=== PATIENT | female | born 1970 | race Caucasian/White ===

== ENCOUNTER → 2016-04-21 | Outpatient (CLI) | payer BC ==
[~2016-04-21] MED LIST: AMOX500T3 PO
--- NOTE | 2016-04-21 12:06 | DIAGNOSTIC IMAGING REPORT ---
ULTRASOUND LEFT LOWER EXTREMITY VENOUS CLINICAL HISTORY: Left leg pain. COMPARISON STUDY: No priors. TECHNIQUE: Real-time, grayscale, and color Doppler sonography of the deep veins of the left lower extremity was performed from the inguinal crease to the calf. Compression and augmentation were utilized. FINDINGS: There is no sonographic evidence of deep venous thrombosis identified in the left lower extremity. The common femoral, superficial femoral, and popliteal veins are patent and normally compressible. The greater saphenous vein and the profunda femoris vein at the junction with the common femoral vein are clear. The visualized calf veins are patent. IMPRESSION: There is no sonographic evidence of deep venous thrombosis identified in the left lower extremity. Electronically signed by: Tony Oliver M.D. 04/21/2016 12:04 PM Dictated Date/Time: 04/21/2016 12:02 PM
== END | disposition home or self-care (01) ==
LOC: C.ULTR 11:29
PROVIDERS: ATTEND Nurse Practitioner Family
DX: M79.606 Pain in leg, unspecified (principal)

== ENCOUNTER → 2016-04-21 | Outpatient (CLI) | payer BC ==
--- NOTE | 2016-04-21 12:39 | MAMMOGRAPHY REPORT ---
UNILATERAL RIGHT DIGITAL DIAGNOSTIC MAMMOGRAM TOMOSYNTHESIS: 04/21/2016 CLINICAL HISTORY: 45-year-old woman presents for follow-up in the right breast for 2 small groupings of probably benign microcalcifications in the posterior breast. TECHNIQUE: Right CC and MLO 2-D digital and tomosynthesis images, spot magnification right CC and M L views were obtained. COMPARISON: Comparison is made to exams dated: 10/10/2015 mammogram, 10/07/2015 mammogram, 11/10/2013 m ammogram, and 06/15/2012 mammogram - [facility]. BREAST COMPOSITION: The tissue of the right breast is heterogeneously dense, which may obscure smal l masses. FINDINGS: The right breast parenchymal pattern is similar to prior mammograms. 2 small groupings of microcalcifications are again seen in the inferior posterior right breast, only clearly identified on one of the repeat spot magnification ML views. However, this view appears very similar comparing to the 10/10/2015 spot magnification ML view suggesting the calcifications are benign. However, lo nger stability is needed and another follow-up is recommended in 6 months. Annual bilateral mammogr aphy will be due at that time. No new suspicious mass, architectural distortion or other cluster of calcifications is identified. IMPRESSION: ACR-BI-RADS CATEGORY 3: PROBABLY BENIGN The 2 small groupings of benign-appearing microcalcifications in the inferior posterior right breast are unchanged comparing to 10/10/2015, therefore likely benign. However, another six-month follow- up exam including repeat spot magnification views is recommended. Annual bilateral mammography will be due at that time. These results and recommendations were discussed with the patient at the time of the exam. Approximately 10% of breast cancers are not detected with mammography. A negative mammographic repor t should not delay biopsy if a clinically suggestive mass is present. Kristan Spaulding M.D. ay/:04/21/2016 09:52:05 Tool Machine Setup Operator: Barby MAURER(Ciara)(M), [facility] letter sent: Follow Up Recommended 3 BI-RADS Code: ACR-BI-RADS Category 3: Probably Benign
== END | disposition home or self-care (01) ==
LOC: C.MAMM 09:13
PROVIDERS: ATTEND Obstetrics & Gynecology
DX: Z12.31 Encounter for screening mammogram for malignant neoplasm of breast (principal); R92.0 Mammographic microcalcification found on diagnostic imaging of breast

== ENCOUNTER → 2016-10-20 | Outpatient (CLI) | payer BC ==
--- NOTE | 2016-10-20 13:54 | MAMMOGRAPHY REPORT ---
BILATERAL DIGITAL DIAGNOSTIC MAMMOGRAM TOMOSYNTHESIS WITH CAD AND TARGETED LEFT ULTRASOUND: 10/20/2016 CLINICAL HISTORY: Second close follow-up of 2 groupings of microcalcifications in the right breast. Also time of annual bilateral screening exam. TECHNIQUE: Bilateral CC and MLO 2-D digital and tomosynthesis images were obtained. Spot magnificati on right CC and ML views were also obtained. Current study was also evaluated with a Computer Aided Detection (CAD) system. COMPARISON: Comparison is made to exams dated: 04/21/2016 mammogram, 10/10/2015 mammogram, 10/07/2015 m ammogram, 11/10/2013 mammogram, and 06/15/2012 mammogram - [facility]. BREAST COMPOSITION: The tissue of both breasts is extremely dense, which lowers the sensitivity of m ammography. FINDINGS: There is a cluster of punctate microcalcifications in the 6:00 posterior right breast measu ring 2.8 mm. A smaller loose grouping of 2-3 by calcifications is also seen in the 3:00 middle one t hird of the right breast. These microcalcifications are stable in size and configuration when compar ing to the spot magnification views dating back to 10/10/2015, and most AP represent benign fibrocyst ic change. Another 12 month follow-up diagnostic mammogram including spot magnification views is rec ommended to ensure longer stability. No new suspicious mass, architectural distortion or cluster of microcalcifications is seen throughout the right breast. In the left lateral breast, best seen on the tomosynthesis images (slice 41), is a lobulated 10 x 10 mm mass. No associated architectural distortion or microcalcification. No other obvious mass is adrian ntified in the left breast. No focal area of architectural distortion or microcalcification. Furthe r evaluation with ultrasound was performed. Targeted ultrasound was performed throughout the lateral left breast. In the 3:00 axis, 2 cm from th e nipple, there is a lobulated predominantly anechoic cyst with a few thin internal nonvascular septa tions measuring 10.0 x 4.0 x 9.4 mm. This likely correlates with the circumscribed mammographic mass and is benign. Note is made of other cysts and cyst clusters in particular within the 1:00 left [address], 2 cm from the nipple, measuring 12.7 x 7.8 x 9.3 mm. Another cyst cluster in the 1:[address], 3 cm from the nipple, measures 9.9 x 7.4 x 9.7 mm. Other smaller scattered anechoic benign cysts are also seen throughout the lateral left breast. No suspicious solid mass. IMPRESSION: ACR-BI-RADS CATEGORY 3: PROBABLY BENIGN, TARGETED ULTRASOUND ACR-BI-RADS CATEGORY 3: PRO BABLY BENIGN 1. A lobulated 10 mm mass in the lateral left breast correlates with a benign cyst on ultrasound. S everal other cysts and clusters of cysts are seen throughout the lateral left breast on ultrasound co mpatible with benign fibrocystic change. There is no mammographic or targeted sonographic evidence o f malignancy in the left breast. 2. There are 2 stable clusters/groupings of benign-appearing microcalcifications in the right breast approximate 6:00 and 3:00 axes. These calcifications are stable for one year but longer stability i s needed. Repeat diagnostic mammograms and spot magnification views of the right breast are recommen ded in 12 months. Annual left mammography will also be due at that time. These results and recommendations were discussed with the patient at the time of the exam. Approximately 10% of breast cancers are not detected with mammography. A negative mammographic report should not delay biopsy if a clinically suggestive mass is present. Kristan Spaulding M.D. ay/:10/20/2016 12:20:47 Office Administrative Assistant: Shelby VALLADARES)(Louise), [facility] letter sent: Follow Up Recommended 3 BI-RADS Code: ACR-BI-RADS Category 3: Probably Benign Ultrasound BI-RADS: ACR-BI-RADS Category 3: Pr obably Benign
== END | disposition home or self-care (01) ==
LOC: C.MAMM 10:05
PROVIDERS: ATTEND Obstetrics & Gynecology
DX: N63 Unspecified lump in breast (principal); R92.0 Mammographic microcalcification found on diagnostic imaging of breast

== ENCOUNTER → 2017-05-06 | Outpatient (CLI) | payer OTHER | END | disposition home or self-care (01) | LOC: C.PAPS 15:39 | PROVIDERS: ATTEND Obstetrics & Gynecology | DX: R10.31 Right lower quadrant pain (principal) ==

== ENCOUNTER → 2017-11-01 | Outpatient (CLI) | payer OTHER ==
--- NOTE | 2017-11-02 07:29 | MAMMOGRAPHY REPORT ---
BILATERAL DIGITAL DIAGNOSTIC MAMMOGRAM TOMOSYNTHESIS WITH CAD: 11/01/2017 CLINICAL HISTORY: 47-year-old woman presents for continued close follow-up in the right breast for pr obably benign small clusters of microcalcifications, and also due for annual bilateral mammography. TECHNIQUE: Bilateral CC and MLO 2D and tomosynthesis images, spot magnification right CC and ML views were obtained. Current study was also evaluated with a Computer Aided Detection (CAD) system. COMPARISON: Comparison is made to exams dated: 10/20/2016 mammogram, 04/21/2016 mammogram, 10/10/2015 m ammogram, 10/07/2015 mammogram, 11/10/2013 mammogram, and 06/15/2012 mammogram - [facility]. BREAST COMPOSITION: The tissue of both breasts is heterogeneously dense, which may obscure small mass es. FINDINGS: The glandular pattern of the breasts is similar to prior mammograms. No new suspicious mas ses, asymmetries or areas of architectural distortion are identified. On the current full-field righ t CC and MLO views, more posterior tissue is visualized comparing to prior mammograms. A small, 2 mm cluster of punctate microcalcifications is seen in the approximate 6:00 posterior right breast, more conspicuous comparing to prior full-field mammograms, but corresponding to the calcifications which are being followed. No other new suspicious calcifications are identified bilaterally. The spot magnification views of the right breast demonstrate a 2 mm cluster of punctate microcalcific ations in the 6:00 to 7:00 far posterior right breast. A second smaller loose grouping of calcificat ions is best seen on the spot magnification ML view superior and slightly anterior to the first, that is unchanged. However, the 2 mm cluster in the 6:00 to 7:00 posterior breast is increasingly conspi cuous comparing it to more remote mammograms although appears unchanged comparing to the spot magnifi cation views obtained on 10/20/2016 although these calcifications most likely represent benign fibrocy stic change given relative stability, given the increasingly conspicuous nature, definitive character ization with stereotactic biopsy is recommended. IMPRESSION: ACR BI-RADS CATEGORY 4: SUSPICIOUS 1. Right breast stereotactic guided biopsy is recommended for a 2 mm cluster of punctate microcalcif ications in the 6:00 to 7:00 posterior breast that is increasingly conspicuous comparing to prior ful l-field views. 2. A second smaller grouping of punctate calcification superior and anterior to the first is stable and probably benign. Pending benign pathology results from the right breast biopsy, would recommend one more 12 month follow-up diagnostic mammogram to ensure longer stability. 3. No other suspicious mammographic abnormality seen bilaterally. Stable mammographic appearance of the left breast, without evidence of malignancy and would recommend left breast follow-up in 1 year. These results and recommendations were discussed with the patient at the time of the exam. She tenta tively scheduled the right breast stereotactic biopsy prior to leaving our department. Some breast cancers are not detected with mammography. A negative mammographic report should not colton y biopsy if a clinically suggestive mass is present. Kristan Spaulding M.D. ay/:11/01/2017 15:00:56 Brake Lining Maker: RT Dread(Ciara)(M), [facility] letter sent: Abnormal 4/5 BI-RADS Code: ACR BI-RADS Category 4: Suspicious
== END | disposition home or self-care (01) ==
LOC: C.MAMM 10:00
PROVIDERS: ATTEND Obstetrics & Gynecology
DX: R92.0 Mammographic microcalcification found on diagnostic imaging of breast (principal); R92.1 Mammographic calcification found on diagnostic imaging of breast

== ENCOUNTER → 2017-11-09 | Outpatient (CLI) | payer OTHER ==
--- NOTE | 2017-11-09 13:40 | Discharge Instructions ---
Discharge Instructions Procedure Procedure Date: Nov 09, 2017. Reason for visit: Right Calcs. Discharge Discharge Date: Nov 09, 2017. Discharge Diagnosis: post right breast stereotactic guided biopsy Instructions Activity Recommendations: Additional Limitations (see below) Return to School/Work: no limitations Recommended Home Diet: No Limitations Provider Instructions: ACTIVITY RECOMMENDATIONS: * No lifting, pushing, pulling or exercising the affected side for three days. RETURN TO SCHOOL/WORK: * You may return to work/school after the procedure, but do not perform any strenuous activities for 24 to 48 hours. MEDICATIONS: * Tylenol (two 325 mg) every four to six hours if needed for mild pain (if not allergic to Tylenol). DIET: * Resume previous diet. SPECIAL CARE INSTRUCTIONS: * Keep biopsy site dry for 24 hours. May shower after 24 hours, but do not soak (bathe) incision. May remove Tegaderm (plastic patch) 24 hours after procedure * Leave the steri-strips on for one week. Allow the steri-strips to fall off by themselves. If not off after one week, you may remove them. You may place a Bandaid crosswise over the strips, if desired. * Apply ice 10 minutes on and 10 minutes off as needed. * Wear a bra at bedtime to sleep more comfortably for 2-3 days. * Your referring physician should have the results after approximately 5 to 7 business days. * Call for unusual bleeding, fever, drainage, etc or if you have any questions call [phone] during normal business hours or after hours call Dr Spaulding, . FOLLOW UP VISIT: Follow-up with Referring Physician as scheduled. Allergies Coded Allergies: No Known Allergies (Unverified , 07/25/12) Cesar Lao Recommendations: Call your doctor if: * Temperature above 101 degrees * Pain not relieved by pain medicine ordered * There is increased drainage or redness from any incision * You have any unanswered questions or concerns. Your Doctors Instructions noted above were prepared by provider Kristan Spaulding. Patient Signature Section: Patient Instructions Signature Page Anna Redmond Patient (or Guardian) Signature/Date: I have read and understand the instructions given to me by my caregivers. Caregiver/RN/Doctor Signature/Date: The above-named patient and/or guardian has received patient instructions on this date. + Original Patient Signature Page (only) stays with chart. Please make copy for patient.
--- NOTE | 2017-11-09 15:20 | MAMMOGRAPHY REPORT ---
UNILATERAL RIGHT DIGITAL DIAGNOSTIC MAMMOGRAM TOMOSYNTHESIS: 11/09/2017 CLINICAL HISTORY: Status post stereotactic guided biopsy of a small cluster of microcalcifications in the 6:00 posterior right breast. Please refer the report from right breast stereotactic guided biopsy performed at the same time for f ull detail. IMPRESSION: POST PROCEDURE IMAGING FOR MARKER PLACEMENT Please refer the report from right breast stereotactic guided biopsy performed at the same time for f ull detail. Some breast cancers are not detected with mammography. A negative mammographic report should not colton y biopsy if a clinically suggestive mass is present. Kristan Spaulding M.D. ay/:11/09/2017 13:41:38 Attending Technologist: Blanca Green RT(R)(M), [facility] It Technician: RT Elizabeth(R)(M), [facility] BI-RADS Code: Post Procedure Imaging For Marker Placement
--- NOTE | 2017-11-09 15:20 | MAMMOGRAPHY REPORT ---
STEREOTACTIC GUIDED BIOPSY RIGHT BREAST: 11/09/2017 CLINICAL HISTORY: 47-year-old woman presents for stereotactic guided biopsy of a small cluster of andrzej rocalcifications in the 6:00 to 7:00 posterior right breast. COMPARISON: Comparison is made to exams dated: 11/01/2017 mammogram, 10/20/2016 mammogram, 04/21/2016 m ammogram, 10/10/2015 mammogram, 10/07/2015 mammogram, and 11/10/2013 mammogram - [facility]. PATIENT CONSENT: After explaining the risks, benefits and alternatives of the procedure to the patien t, informed consent was obtained both verbally and in writing. Specific risks include: Bleeding, inf ection, puncture of adjacent structure, pain, nontarget biopsy, sampling error, metal allergy and med ication reaction. PROCEDURE DESCRIPTION: A time-out was performed and the right breast was confirmed as the site of bio psy. The patient was placed prone on the stereotactic biopsy table and the breast was placed in later almedial compression. A tomosynthesis core winder view was obtained which demonstrates the calcifications just above the targeting window and therefore multiple attempts at repositioning were performed to tr y to include the calcifications within the targeting window. Ultimately, the calcifications were vis ualized within the targeting window and the small cluster of calcifications were targeted utilizing t he coordinates obtained by the computer. The skin was prepped with Betadine. 1% Lidocaine with and w ithout epinipherine was administered as local anesthesia. A small skin incision was made. Through th e incision, the needle was inserted to the depth determined by the computer. 4 samples were obtained using a [employer] 9-gauge vacuum-assisted biopsy device. The specimen radiograph demonstrated sever al disability representative microcalcifications, therefore, a metallic marker was placed at the biopsy site. Th ere was no immediate complication. Hemostasis was achieved after several minutes of manual compressio n. The samples were sent to pathology in an appropriately labeled container. Postprocedure CC and ML tomosynthesis views of the right breast were obtained. There is a new dumbb ell-shaped metallic biopsy marker clip and no significant hematoma in the 6:00 to 7:00 posterior righ t breast, at the site of biopsied calcifications. Pending benign pathology results, would recommend one more 12 month follow-up right diagnostic mammogram including spot magnification views to ensure s tability of the other smaller non-biopsied cluster of calcifications. The patient will also be due f or bilateral screening mammography at that time. IMPRESSION: STEREOTACTIC GUIDED BIOPSY 1. Status post right breast stereotactic guided biopsy of a small cluster of microcalcifications in t he 6:00 to 7:00 posterior right breast, with biopsy marker clip placed at the site. 2. Pending benign pathology results, would recommend one more 12 month follow-up right diagnostic ma mmogram including spot magnification views to ensure stability of the other smaller non-biopsied clus ter of calcifications. The patient will also be due for bilateral screening mammography at that time . The patient will receive notification of the results from her referring physician. Kristan Spaulding M.D. ay/:11/09/2017 14:30:40 Attending Technologist: Blanca Green RT(R)(M), [facility] Bench Mechanic: RT Elizabeth(R)(M), [facility]
== END | disposition home or self-care (01) ==
LOC: C.MAMM 12:39
PROVIDERS: ATTEND Obstetrics & Gynecology
DX: R92.0 Mammographic microcalcification found on diagnostic imaging of breast (principal); N60.81 Other benign mammary dysplasias of right breast

== ENCOUNTER 2020-09-19 18:09 | Observation (INO) ==
[2020-09-19] MEDS ORDERED: NITROGLYCERIN SL 0.4 MG/TAB TAB SL PRN (18:12)
--- NOTE | 2020-09-19 18:24 | Emergency Department Note ---
Impression & Plan Substernal chest pain ED Provider Note INFORMANT: Patient, EMS ED PROVIDER(S): Dru Hunt MD CHIEF COMPLAINT: Chest pain PLAN: Disposition: Admitted Condition: Good Outpatient prescription management: none Referral: None patient presented to emergency department via EMS from the outpatient clinic. Her ECG was concerning for left bundle branch block. No recent EKGs were available for comparison. The patient did have some relief with nitroglycerin. She was given a second nitroglycerin sublingual and felt even better. The pain was resolved. Nitropaste was applied. She was mildly tachycardic and hypertensive. She was given IV metoprolol. The patient had an unremarkable CBC and chemistry panel. Troponin was negative. D-dimer was negative. I did consult with Dr. Escalera of interventional cardiology and he recommended the patient be heparinized admitted to medicine with cardiology consultation unless there was an significant issue with the troponin. He noted he wanted to be notified if that was the case. The troponin in fact was negative and therefore internal medicine was consulted. Heparin drip was initiated in the ER. Case was discussed with Dr. Kerr of the [facility]. The patient was evaluated in the ER and admitted for further management. Incidentally the patient did have a low TSH and a minimally elevated free T4. The patient had been taking iodine supplementation. MEDICAL DECISION MAKING: Provider summary Triage Nursing notes reviewed and agree them. Vital Signs: reviewed and remarkable for no significant abnormalities Differential diagnosis: Cardiac ischemia, aortic dissection, pulmonary embolism, pneumothorax, pneumonia, pericarditis, myocarditis, esophageal rupture, GERD, cholecystitis, pancreatitis, musculoskeletal, as well as other pathologies. Diagnostics interpreted by me: ECG: Rate:99 Rhythm:Normal sinus [place]:Normal QRS:LBBB ST segements:No elevation or depression Other:No PACs or PVCs Cardiac Monitoring: Cardiac monitoring ordered by me: The patient was placed on continuous cardiac monitoring and observed. It revealed a normal sinus rhythm at 98beats per minute without ectopy or evidence of dysrhythmia. Chest x-ray. Findings: A chest x-ray was performed and revealed no pneumothorax, effusion, infiltrate, pulmonary edema, free air under the diaphragm, or wide mediastinum. HPI: The patient is a 50 year old female who presents to the Emergency Room with complaints of substernal chest pain. This started 2 days ago and is intermittent. The patient also notes the following associated symptoms, none. The patient has been given aspirin and nitro for relieving factors. Current pain is rated as 3/10. Pt denies LOC, headache, fevers, chills, diaphoresis, visual changes, neck pain, breathing difficulties, nausea, vomiting, abdominal pain, back pain, melena, hematochezia, urinary symptoms, numbness, weakness, lymphadenopathy, rash, or other complaints. ROS: See above HPI for pertinent positives & negatives. A total of 10 systems reviewed and were otherwise negative. PAST MEDICAL HISTORY:See Below , sleep apnea PAST SURGICAL HISTORY:See Below, TKR FAMILY HISTORY:See Below SOCIAL HISTORY:See Below, , no tobacco HOME MEDICATIONS:See Below ALLERGIES:See Below VITALS:See Below PHYSICAL EXAMINATION: GENERAL: Awake, alert, well-appearing, in no distress HENT: Normocephalic, atraumatic. Oropharynx unremarkable. EYES: Normal conjunctiva. Sclera non-icteric. NECK: Inspection normal. Non-tender. Supple. No nuchal rigidity. FROM. No masses. RESPIRATORY: Clear to auscultation. No wheezes. No rales. Normal respiratory effort. CARDIAC: Normal rate. Normal rhythm. No murmurs. No rubs. Extremities warm and well perfused. Pulses equal. No JVD. GI: Soft, non-distended. No tenderness to palpation. No rebound or guarding. No masses. RECTAL: Deferred. MUSCULOSKELETAL: Atraumatic. Chest examination reveals no tenderness. The back is symmetrical on inspection without obvious abnormality. There is no CVA tenderness to palpation. No joint edema. LOWER EXTREMITIES: Calves are equal size bilaterally and non-tender. No edema. N o discoloration. NEURO: Normal sensorium. No sensory or motor deficits noted. SKIN: No rash or jaundice noted. 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 Nasal septal deviation Rheumatoid arthritis Surgical History H/O section S/P surgery on nasal septum deviation repair S/P wisdom tooth extraction Total knee replacement status bilateral Family History Father Mother Hypertension Denies family history of Ovarian cancer Breast cancer Colorectal cancer Social History Smoking Status: Never smoker Hx Alcohol Use: Yes (social) marital status: Feels Safe at Home: Yes Allergies Allergies Allergy/AdvReac Type Severity Reaction Status Date / Time No Known Drug Allergies Allergy Unknown Verified 09/19/20 19:53 Home Meds Home Medications Medication Instructions Recorded Confirmed boric acid See Rx Instructions MS CAIN 12/01/18 09/19/20 bupropion HCl 150 mg 24 hr tablet, 150 mg PO DAILY tab 12/01/18 09/19/20 extended release dexmethylphenidate 5 mg PO QAM 09/19/20 09/19/20 Results & Data (ED) Vital Signs Vital Signs - 24 hr 09/19/20 18:16 09/19/20 18:18 09/19/20 18:20 Temperature Temperature Source Pulse Rate 94 H 103 H 90 Pulse Rate from SpO2 Sensor 95 H 99 H 89 Pulse Rhythm Pulse Strength Respiratory Rate 17 18 33 H Respiratory Effort / Characteristics Respiratory Depth Blood Pressure 193/112 H Blood Pressure Mean 139 Blood Pressure Position Pulse Oximetry 99 99 98 Oxygen Delivery Method Sepsis Recent Fever Within 48 Hours Sepsis New/Unexplained Change in Mental Status Sepsis Action Taken by Nursing 09/19/20 18:26 09/19/20 18:30 09/19/20 18:31 Temperature 36.6 C Temperature Source Oral Pulse Rate 110 H 99 H 84 Pulse Rate from SpO2 Sensor 99 H 85 Pulse Rhythm Regular Pulse Strength Normal Respiratory Rate 23 23 23 Respiratory Effort / Characteristics Non-Labored Respiratory Depth Normal Blood Pressure 193/112 H 207/113 H Blood Pressure Mean 139 144 Blood Pressure Position Sitting Pulse Oximetry 99 100 99 Oxygen Delivery Method Room Air Sepsis Recent Fever Within 48 Hours No Sepsis New/Unexplained Change in Mental Status No Sepsis Action Taken by Nursing No Action Required 09/19/20 18:41 09/19/20 18:42 09/19/20 18:45 Temperature Temperature Source Pulse Rate 91 H 88 95 H Pulse Rate from SpO2 Sensor 95 H 86 94 H Pulse Rhythm Pulse Strength Respiratory Rate 26 H 25 H 12 Respiratory Effort / Characteristics Respiratory Depth Blood Pressure 201/107 H 191/107 H Blood Pressure Mean 138 135 Blood Pressure Position Pulse Oximetry 99 99 98 Oxygen Delivery Method Sepsis Recent Fever Within 48 Hours Sepsis New/Unexplained Change in Mental Status Sepsis Action Taken by Nursing 09/19/20 18:50 09/19/20 18:51 09/19/20 18:55 Temperature Temperature Source Pulse Rate 91 H 96 H 92 H Pulse Rate from SpO2 Sensor 93 H 97 H Pulse Rhythm Pulse Strength Respiratory Rate 25 H 21 19 Respiratory Effort / Characteristics Respiratory Depth Blood Pressure 160/96 H 157/98 H Blood Pressure Mean 117 117 Blood Pressure Position Pulse Oximetry 97 97 97 Oxygen Delivery Method Sepsis Recent Fever Within 48 Hours Sepsis New/Unexplained Change in Mental Status Sepsis Action Taken by Nursing 09/19/20 19:00 09/19/20 19:05 09/19/20 19:10 Temperature Temperature Source Pulse Rate 82 77 77 Pulse Rate from SpO2 Sensor Pulse Rhythm Pulse Strength Respiratory Rate 20 24 13 Respiratory Effort / Characteristics Respiratory Depth Blood Pressure 173/93 H 165/99 H 160/97 H Blood Pressure Mean 119 121 118 Blood Pressure Position Pulse Oximetry 98 99 99 Oxygen Delivery Method Sepsis Recent Fever Within 48 Hours Sepsis New/Unexplained Change in Mental Status Sepsis Action Taken by Nursing 09/19/20 19:15 09/19/20 19:20 09/19/20 19:25 Temperature Temperature Source Pulse Rate 72 74 80 Pulse Rate from SpO2 Sensor Pulse Rhythm Pulse Strength Respiratory Rate 19 25 H 19 Respiratory Effort / Characteristics Respiratory Depth Blood Pressure 162/97 H 160/100 H 173/96 H Blood Pressure Mean 118 120 121 Blood Pressure Position Pulse Oximetry 98 99 99 Oxygen Delivery Method Sepsis Recent Fever Within 48 Hours Sepsis New/Unexplained Change in Mental Status Sepsis Action Taken by Nursing 09/19/20 19:28 09/19/20 19:30 09/19/20 19:35 Temperature Temperature Source Pulse Rate 84 76 70 Pulse Rate from SpO2 Sensor Pulse Rhythm Pulse Strength Respiratory Rate 14 17 Respiratory Effort / Characteristics Respiratory Depth Blood Pressure 173/96 H 169/102 H 157/90 H Blood Pressure Mean 124 112 Blood Pressure Position Pulse Oximetry 99 99 Oxygen Delivery Method Sepsis Recent Fever Within 48 Hours Sepsis New/Unexplained Change in Mental Status Sepsis Action Taken by Nursing 09/19/20 19:40 09/19/20 19:45 09/19/20 19:50 Temperature Temperature Source Pulse Rate 69 69 72 Pulse Rate from SpO2 Sensor Pulse Rhythm Pulse Strength Respiratory Rate 18 22 20 Respiratory Effort / Characteristics Respiratory Depth Blood Pressure 176/101 H 164/95 H 164/94 H Blood Pressure Mean 126 118 117 Blood Pressure Position Pulse Oximetry 99 98 99 Oxygen Delivery Method Sepsis Recent Fever Within 48 Hours Sepsis New/Unexplained Change in Mental Status Sepsis Action Taken by Nursing 09/19/20 19:55 09/19/20 20:00 09/19/20 20:16 Temperature Temperature Source Pulse Rate 66 67 72 Pulse Rate from SpO2 Sensor Pulse Rhythm Pulse Strength Respiratory Rate 19 17 17 Respiratory Effort / Characteristics Respiratory Depth Blood Pressure 158/94 H 166/91 H 177/97 H Blood Pressure Mean 115 116 123 Blood Pressure Position Pulse Oximetry 99 98 98 Oxygen Delivery Method Sepsis Recent Fever Within 48 Hours Sepsis New/Unexplained Change in Mental Status Sepsis Action Taken by Nursing 09/19/20 20:20 09/19/20 20:30 09/19/20 21:00 Temperature Temperature Source Pulse Rate 72 70 73 Pulse Rate from SpO2 Sensor Pulse Rhythm Pulse Strength Respiratory Rate 19 22 26 H Respiratory Effort / Characteristics Respiratory Depth Blood Pressure 154/111 H 170/108 H 153/108 H Blood Pressure Mean 125 128 123 Blood Pressure Position Pulse Oximetry 98 97 Oxygen Delivery Method Sepsis Recent Fever Within 48 Hours Sepsis New/Unexplained Change in Mental Status Sepsis Action Taken by Nursing 09/19/20 21:30 09/19/20 22:00 09/19/20 22:13 Temperature Temperature Source Pulse Rate 79 88 79 Pulse Rate from SpO2 Sensor Pulse Rhythm Pulse Strength Respiratory Rate 14 21 Respiratory Effort / Characteristics Respiratory Depth Blood Pressure 169/106 H 184/122 H 157/90 H Blood Pressure Mean 127 142 112 Blood Pressure Position Pulse Oximetry 96 96 98 Oxygen Delivery Method Room Air Sepsis Recent Fever Within 48 Hours Sepsis New/Unexplained Change in Mental Status Sepsis Action Taken by Nursing Laboratory Data Result diagrams: 09/19/20 18:27 09/19/20 18:27 Lab Results 09/19/20 09/19/20 09/19/20 Range/Units 18:00 18:00 18:27 WBC 6.37 (4.8-10.8) K/uL RBC 4.66 (4.2-5.4) M/uL Hgb 12.6 (12.0-16.0) g/dL Hct 38.2 (37-47) % MCV 82.0 (80-100) fL MCH 27.0 (25-34) pg MCHC 33.0 (32-36) g/dL RDW Std Deviation 38.0 (36.4-46.3) fL RDW Coeff of Wendy 12.7 (11.5-14.5) % Plt Count 286 (130-400) K/uL MPV 9.9 (7.4-10.4) fL Immature Gran % (Auto) 0.2 % Neut % (Auto) 45.6 % Lymph % (Auto) 41.1 % [place] % (Auto) 10.5 % Eos % (Auto) 2.4 % Baso % (Auto) 0.2 % Neut # (Auto) 2.91 (1.4-6.5) K/uL Lymph # (Auto) 2.62 (1.2-3.4) K/uL [place] # (Auto) 0.67 H (0.11-0.59) K/uL Eos # (Auto) 0.15 (0-0.5) K/uL Baso # (Auto) 0.01 (0-0.2) K/uL Immature Gran # (Auto) 0.01 (0.00-0.02) K/uL PT (9.0-12.0) Seconds INR (0.9-1.1) APTT (21.0-31.0) Seconds PTT Ratio D-Dimer (0-500) ug/L FEU Sodium (136-145) mmol/L Potassium (3.5-5.1) mmol/L Chloride (98-107) mmol/L Carbon Dioxide (21-32) mmol/L Anion Gap (3-11) BUN (7-18) mg/dl Creatinine (0.6-1.2) mg/dl Est Cr Clr Drug Dosing ml/min Est GFR ( Amer) ml/min Est GFR (Non-Af Amer) ml/min BUN/Creatinine Ratio (10-20) Glucose (70-99) mg/dl Calcium (8.5-10.1) mg/dl Total Bilirubin (0.2-1) mg/dl AST (15-37) U/L ALT (12-78) U/L Alkaline Phosphatase (45-117) U/L Troponin I (0-0.045) ng/ml Total Protein (6.4-8.2) gm/dl Albumin (3.4-5.0) gm/dl Globulin (2.5-4.0) gm/dl Albumin/Globulin Ratio (0.9-2) Lipase (73-393) U/L TSH (0.300-4.500) uIu/ml Free T4 (0.8-1.6) ng/dl COVID-19 Eval Order Covid19 at [facility] SARS-CoV-2 (PCR) NEGATIVE (Negative) 09/19/20 09/19/20 Range/Units 18:27 18:27 WBC (4.8-10.8) K/uL RBC (4.2-5.4) M/uL Hgb (12.0-16.0) g/dL Hct (37-47) % MCV (80-100) fL MCH (25-34) pg MCHC (32-36) g/dL RDW Std Deviation (36.4-46.3) fL RDW Coeff of Wendy (11.5-14.5) % Plt Count (130-400) K/uL MPV (7.4-10.4) fL Immature Gran % (Auto) % Neut % (Auto) % Lymph % (Auto) % [place] % (Auto) % Eos % (Auto) % Baso % (Auto) % Neut # (Auto) (1.4-6.5) K/uL Lymph # (Auto) (1.2-3.4) K/uL [place] # (Auto) (0.11-0.59) K/uL Eos # (Auto) (0-0.5) K/uL Baso # (Auto) (0-0.2) K/uL Immature Gran # (Auto) (0.00-0.02) K/uL PT 9.8 (9.0-12.0) Seconds INR 1.0 (0.9-1.1) APTT 25.8 (21.0-31.0) Seconds PTT Ratio 1.0 D-Dimer 440 (0-500) ug/L FEU Sodium 141 (136-145) mmol/L Potassium 3.7 (3.5-5.1) mmol/L Chloride 108 H (98-107) mmol/L Carbon Dioxide 26 (21-32) mmol/L Anion Gap 7.0 (3-11) BUN 16 (7-18) mg/dl Creatinine 0.86 (0.6-1.2) mg/dl Est Cr Clr Drug Dosing 70.4 ml/min Est GFR ( Amer) 91.3 ml/min Est GFR (Non-Af Amer) 78.8 ml/min BUN/Creatinine Ratio 18.4 (10-20) Glucose 92 (70-99) mg/dl Calcium 9.0 (8.5-10.1) mg/dl Total Bilirubin 0.2 (0.2-1) mg/dl AST 28 (15-37) U/L ALT 33 (12-78) U/L Alkaline Phosphatase 95 (45-117) U/L Troponin I < 0.015 (0-0.045) ng/ml Total Protein 8.4 H (6.4-8.2) gm/dl Albumin 3.9 (3.4-5.0) gm/dl Globulin 4.5 H (2.5-4.0) gm/dl Albumin/Globulin Ratio 0.9 (0.9-2) Lipase 107 (73-393) U/L TSH < 0.005 L (0.300-4.500) uIu/ml Free T4 1.63 H (0.8-1.6) ng/dl COVID-19 Eval Order SARS-CoV-2 (PCR) (Negative) Administered Medications Heparin Sodium/Dextrose (Heparin Sodium/Dextrose) 25,000 units in 500 mls @ 14 mls/hr IV .Q24H [facility]; Protocol Stop: 10/19/20 19:58 Last Admin: 09/19/20 20:11 Dose: 700 units/hr, 14 mls/hr Documented by: [id number] Cosigned by: [id number] Nitroglycerin (Nitroglycerin Sl 0.4 Mg/Tab Tab) 0.4 mg SL UD PRN PRN Reason: Chest Pain Stop: 10/19/20 18:11 Last Admin: 09/19/20 18:46 Dose: 0.4 mg Documented by: [id number] Discontinued Medications Heparin Sodium (Porcine) (Heparin Sod (Porcine) 1000 Unit/Ml) 1 units IV NOW ONE Stop: 09/19/20 20:00 Last Admin: 09/19/20 20:16 Dose: Not Given Documented by: [id number] Heparin Sodium (Porcine) (Heparin Sod (Porcine) 1000 Unit/Ml) 4,000 units IV NOW ONE Stop: 09/19/20 20:12 Last Admin: 09/19/20 20:12 Dose: 4,000 units Documented by: [id number] Cosigned by: [id number] Heparin Sodium/Dextrose (Heparin Iv Adult Wt-Based Low-Dose With Bolus Protocol) 1 ea N/A NOW STA; Protocol Stop: 09/19/20 19:44 Last Admin: 09/19/20 20:16 Dose: 1 ea Documented by: [id number] Metoprolol Tartrate (Metoprolol Tartrate 1 Mg/Ml Vial) 2.5 mg IV NOW STA Stop: 09/19/20 19:18 Last Admin: 09/19/20 19:28 Dose: 2.5 mg Documented by: [id number] Nitroglycerin (Nitroglycerin 2% Ointment 30gm Tube) 0.5 inch EXT NOW STA Stop: 09/19/20 18:29 Last Admin: 09/19/20 18:43 Dose: 0.5 inch Documented by: [id number] Imaging Data Radiologist's Impression: Chest X-Ray 09/19/20 18:12 XR chest 1V portable CLINICAL HISTORY: Atypical chest pain COMPARISON STUDY: No previous studies for comparison. FINDINGS: The cardiac and mediastinal contours are normal. There is no evidence of focal pulmonary consolidation. There is no evidence of failure. No pleural effusions are visualized.[ IMPRESSION: No active disease in the chest. ACT 112: Negative or not required by law. Electronically signed by: Bobby Shetty M.D. 09/19/2020 7:25 PM Discharge Plan Visit Data Chief Complaint: Chest Pain ED Provider: Dru Hunt Discharge Problem: Substernal chest pain Discharge Instructions Interventions: ED Discharge Assessment Last Done: 09/19/20 22:16
[2020-09-19] MEDS ORDERED: NITROGLYCERIN 2% OINTMENT 30GM TUBE EXT STA (18:28)
[2020-09-19 18:41] LABS: Basophils # (auto) 0.01 K/uL (0-0.2); Basophils % (auto) 0.2 %; Eosinophils # (auto) 0.15 K/uL (0-0.5); Eosinophils % (auto) 2.4 %; Hematocrit (blood only) 38.2 % (37-47); Hemoglobin 12.6 g/dL (12.0-16.0); Immature Granulocytes # (auto) 0.01 K/uL (0.00-0.02); Immature Granulocytes % (auto) 0.2 %; Lymphocytes # (auto) 2.62 K/uL (1.2-3.4); Lymphocytes % (auto) 41.1 %; Mean Platelet Volume 9.9 fL (7.4-10.4); Monocytes # (auto) 0.67 K/uL (0.11-0.59); Monocytes % (auto) 10.5 %; Neutrophils # (auto) 2.91 K/uL (1.4-6.5); Neutrophils % (auto) 45.6 %; Platelet Count 286 K/uL (130-400); RDW Coefficient of Variation 12.7 % (11.5-14.5); Red Blood Count 4.66 M/uL (4.2-5.4); White Blood Count 6.37 K/uL (4.8-10.8)
[2020-09-19 18:53] LABS: D Dimer 440 ug/L FEU (0-500); Partial Thromboplastin Time 25.8 Seconds (21.0-31.0); Prothrombin Time 9.8 Seconds (9.0-12.0)
[2020-09-19 18:58] LABS: Alanine Aminotransferase 33 U/L (12-78); Albumin Level 3.9 gm/dl (3.4-5.0); Aspartate Aminotransferase 28 U/L (15-37); BUN Creatinine Ratio 18.4 (10-20); Blood Urea Nitrogen 16 mg/dl (7-18); Carbon Dioxide 26 mmol/L (21-32); Chloride 108 mmol/L (98-107); Creatinine Clr Calc Pharmacy 70.4 ml/min; Est GFR (African American) 91.3 ml/min; Est GFR (Non-African American) 78.8 ml/min; Glucose 92 mg/dl (70-99); Lipase 107 U/L (73-393); Potassium 3.7 mmol/L (3.5-5.1); Sodium 141 mmol/L (136-145)
[2020-09-19 19:09] LABS: Albumin Globulin Ratio 0.9 (0.9-2); Alkaline Phosphatase 95 U/L (45-117); Bilirubin,Total 0.2 mg/dl (0.2-1); Globulin 4.5 gm/dl (2.5-4.0); Thyroid Stimulating Hormone < 0.005 uIu/ml (0.300-4.500); Total Protein 8.4 gm/dl (6.4-8.2); Troponin I < 0.015 ng/ml (0-0.045)
[2020-09-19] MEDS ORDERED: METOPROLOL TARTRATE 1 MG/ML VIAL IV STA (19:17)
[2020-09-19 19:22] LABS: T4 Free Thyroxine 1.63 ng/dl (0.8-1.6)
--- NOTE | 2020-09-19 19:26 | XRay Report ---
XR chest 1V portable CLINICAL HISTORY: Atypical chest pain COMPARISON STUDY: No previous studies for comparison. FINDINGS: The cardiac and mediastinal contours are normal. There is no evidence of focal pulmonary co nsolidation. There is no evidence of failure. No pleural effusions are visualized.[ IMPRESSION: No active disease in the chest. ACT 112: Negative or not required by law. Electronically signed by: Bobby Shetty M.D. 09/19/2020 7:25 PM
[2020-09-19] MEDS ORDERED: Heparin IV Adult Wt-Based Low-Dose WITH Bolus Protocol STA (19:43)
[2020-09-19] MEDS ORDERED: HEPARIN SOD (PORCINE) 1000 UNIT/ML IV ONE ×2 (19:59→20:11)
[2020-09-19] MEDS ORDERED: HEPARIN SODIUM/DEXTROSE 25,000 UNITS/500 ML BAG IV SCH (19:59)
--- NOTE | 2020-09-19 20:18 | History & Physical Report ---
Date of Service September 19, 2020 Assessment & Plan (1) Substernal chest pain: 50 y/o F w/ ADD on occasional stimulant medication and w/o significant risk factors who presents w/ intermittent atypical chest pain x3 days. Stable. - midupper sternal, pleuritic, nonexertional, nonpositional, alleviated by nitro. No associated symptoms. - other differentials considered: myocarditis, PE, costochondritis, GERD - ecg w/ new LBBB, negative for modified and classic Sgarbossa criteria - neg trop x1. trend - heart score 1. AGNIESZKA score 1. - consult cardiology because of new LBBB (2) Elevated blood pressure reading: - no hx of HTN - elevated BPs this admission, 170s/100 at peak - chart review shows normotensive 108/68 on 04/26/20 - defer treatment at this time as she is asymptomatic and does not meet hypertensive urgency - continue monitoring for symptoms and reassess if starting on medication would be appropriate (3) ADD (attention deficit disorder): - per Powerchart PCP chart review, prescibed Focalin XR 5 mg (desmethylphenidate) qam - per patient, takes only a few times a month, as needed - hold this medication (4) Subclinical hyperthyroidism: - labwork this admission: TSH <0.005. fT4 1.63. 09/16/20 iodine elevated at 376 - the abnormality was noted on 09/16/20 PCP labs as well, but new compared to 03/19/20 TSH 0.87, fT4 1.0 - had normal nuclear thyroid scan on 06/10/20 for elevated thyroglobulin of 12.4 - patient had been taking over the counter iodine supplement x several months - f/u as outpatient (5) Rheumatoid arthritis: - chronic, not on medications (6) Moderate obstructive sleep apnea: - not on cpap, has had sleep studies - outpatient f/u (7) Depression: - continue home Wellbutrin FEN/GI: HH diet. NPO after midnight ppx: on heparin drip code: full dispo: PCU History of Present Illness 50 y/o F w/ hx of ADD on stimulant, RA, subclinical hyperthyroidism who presents w/ intermittent midsternal pressure-like chest pain since 2 days ago. She was driving at the time of onset. The pain is nonexertional, nonpositional, does not radiate, and dose not have associated symptoms such as fever/chills, nausea/vomiting, headache, visual changes, palpitations, numbness/tingling, jaw pain, abd pain. It is pleuritic and noticed mainly only when taking in a deep breath, described as if "something was blocking her deep breathing." 6/10 severity 2 days ago, minimal yesterday, and 4/10 today, prompting her to see PCP who referred to ED after noting a new onset LBBB compared to 2013. Current pain, s/p nitro x2 and nitro paste is 0-1/10. Patient denies hx of DM, FHx of heart or thyroid disease, as well as recent overexertion or trauma. She is covid vaccinated. 1 pack year history 25 years ago. No history of previous chest pain. ED course: she is s/p nitro x1 at PCP office and another upon ED arrival. 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 ECG in ED w/ LBBB. 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 Nasal septal deviation Rheumatoid arthritis Surgical History H/O section S/P surgery on nasal septum deviation repair S/P wisdom tooth extraction Total knee replacement status bilateral Family History Father Mother Hypertension Denies family history of Ovarian cancer Breast cancer Colorectal cancer Social History Smoking Status: Never smoker Hx Alcohol Use: No Hx Substance Use: No Preferred Language: Kinyarwanda Communication Ability: Effective Java Enterprise Architect Required: No Beliefs That Will Affect Care: None marital status: Other Information That Helps Us Care for You: No Feels Safe at Home: Yes Safety Concerns: Feels Safe At This Time Assistive Devices: None Review of Systems Review of Systems: Constitutional: Denies fever, chills, weight change Eyes: Denies blurry vision, vision changes ENT: Denies sore throat Cardiovascular: Denies palpitations, extremity swelling Respiratory: Denies shortness of breath, cough, sputum production, difficulty breathing Gastrointestinal: Denies abdominal pain, nausea, vomiting, constipation, diarrhea Genitourinary: Denies urinary symptoms including dysuria Musculoskeletal: Denies weakness. + mild low back pain, currently minimal Neurological: Denies headache, numbness, tingling, focal weakness Integumentary: + generalized pruritus 2 nights ago, since resolved Physical Exam Physical Exam: Vitals reviewed. Hypertensive. General: Grossly A&O. NAD. Cooperative. HEENT: Atraumatic, normocephalic. EOMI. PERRL. Neck supple. No lymphadenopathy. Pulm: CTAB. -wheezes, -rales, -rhonchi. Symmetrical chest rise. No respiratory distress. Cardiac: RRR, -mrg. Radial pulses and DP pulses 2+ bilaterally. Musculoskeletal: No reproducible upper chest wall tenderness. Abdominal: Nontender, nondistended, soft. Results & Data Results & Data ([facility]) Vital Signs (Past 12 Hours) Vital Signs Temp Pulse Resp BP Pulse Ox 09/19/20 19:28 84 173/96 H 09/19/20 19:25 80 19 173/96 H 99 09/19/20 19:20 74 25 H 160/100 H 99 09/19/20 19:15 72 19 162/97 H 98 09/19/20 19:10 77 13 160/97 H 99 09/19/20 19:05 77 24 165/99 H 99 09/19/20 19:00 82 20 173/93 H 98 09/19/20 18:55 92 H 19 157/98 H 97 09/19/20 18:51 96 H 21 97 09/19/20 18:50 91 H 25 H 160/96 H 97 09/19/20 18:45 95 H 12 191/107 H 98 09/19/20 18:42 88 25 H 201/107 H 99 09/19/20 18:41 91 H 26 H 99 09/19/20 18:31 84 23 99 09/19/20 18:30 99 H 23 207/113 H 100 09/19/20 18:26 36.6 C 110 H 23 193/112 H 99 09/19/20 18:20 90 33 H 98 09/19/20 18:18 103 H 18 99 09/19/20 18:16 94 H 17 193/112 H 99 Laboratory Results - cbc, cmp wnl - neg trop x1 - TSH <0.005. fT4 1.63. covid neg Diagnostic Findings cxr: neg ECG Additional Comments: ecg interpreted by me. Nsr 99 bpm. New LBBB. L atrial enlargement. Normal axis and AZ interval. QTc borderline prolonged. Code Status & VTE Plan Code Status full Supervising Physician Co-Signing Physician Notes Patient seen and examined, chart reviewed, case discussed with Dr. STAFFORD and I agree with his assessment and plan as documented above. Briefly, patient is a 50yo C female with history of RA, ADHD presenting with SSCP, new LBBB noted on EKG. Troponin x 2 negative Exam unremarkable - patient hypertensive at 150/82 +S1/S2, regular, no m/r/g, no carotid bruits, pulses 2+ in UE/LE bilaterally with warm extremities Labs and images reviewed Troponin x 2 negative EKG with LBBB Assessment/plan- -echo -heparin gtt -trend troponin -lipid panel and A1C for risk assessment -Aspirin 81mg daily -Cardiology consultation appreciated -Remainder of plan as above Resident Activity Tracking Resident Involvement: Resident Care Provided Care Provided: Adult [facility]
[2020-09-19] MEDS ORDERED: LABETALOL HCL IV 5 MG/ML 20ML IV PRN (22:48)
[2020-09-19] MEDS ORDERED: MoRPHine SULFATE 2 MG/ML CARP IV PRN (22:48)
[2020-09-20] MEDS: LACTATED RINGER'S 1,000 ML IV SCH ×2 (00:43→10:38)
[2020-09-20 02:18] LABS: Basophils # (auto) 0.01 K/uL (0-0.2); Basophils % (auto) 0.2 %; Eosinophils # (auto) 0.15 K/uL (0-0.5); Eosinophils % (auto) 3.2 %; Hematocrit (blood only) 34.7 % (37-47); Hemoglobin 11.4 g/dL (12.0-16.0); Lymphocytes # (auto) 2.01 K/uL (1.2-3.4); Lymphocytes % (auto) 42.2 %; Mean Corpuscular Hemoglobin 27.1 pg (25-34); Mean Corpuscular Hgb Conc 32.9 g/dL (32-36); Mean Corpuscular Volume 82.4 fL (80-100); Mean Platelet Volume 9.6 fL (7.4-10.4); Monocytes # (auto) 0.44 K/uL (0.11-0.59); Monocytes % (auto) 9.2 %; Neutrophils # (auto) 2.15 K/uL (1.4-6.5); Neutrophils % (auto) 45.2 %; Platelet Count 254 K/uL (130-400); RDW Coefficient of Variation 12.7 % (11.5-14.5); RDW Standard Deviation 38.4 fL (36.4-46.3); Red Blood Count 4.21 M/uL (4.2-5.4); White Blood Count 4.76 K/uL (4.8-10.8)
[2020-09-20 02:37] LABS: BUN Creatinine Ratio 18.3 (10-20); Blood Urea Nitrogen 16 mg/dl (7-18); Calcium 8.7 mg/dl (8.5-10.1); Carbon Dioxide 29 mmol/L (21-32); Chloride 112 mmol/L (98-107); Creatinine Clr Calc Pharmacy 70.4 ml/min; Est GFR (African American) 91.3 ml/min; Est GFR (Non-African American) 78.8 ml/min; Glucose 99 mg/dl (70-99); Magnesium 2.2 mg/dl (1.8-2.4); Potassium 3.6 mmol/L (3.5-5.1); Sodium 144 mmol/L (136-145)
[2020-09-20 02:41] LABS: Partial Thromboplastin Ratio 2.1
[2020-09-20 02:42] LABS: Troponin I < 0.015 ng/ml (0-0.045)
--- NOTE | 2020-09-20 05:33 | Billing Data ---
Date of Service September 19, 2020 Coding Level of Care Code 45072 OBS Care - Level 3
[2020-09-20] MEDS: POTASSIUM CHLORIDE / WTR 10 MEQ/100 ML PLCT IV SCH ×4 (06:22→10:34)
[2020-09-20 06:49] LABS: Chol HDL Ratio 2; Cholesterol 165 mg/dl (0-200); HDL Cholesterol 76 mg/dl; LDL Cholesterol Calculated 79 mg/dl; Triglycerides 49 mg/dl (0-150); VLDL Cholesterol 10 mg/dl
[2020-09-20 07:51] LABS: Estimated Average Glucose 111 mg/dl; Hemoglobin A1C 5.5 % (4.5-5.6)
--- NOTE | 2020-09-20 08:26 | Hospitalist Progress Note ---
Date of Service September 20, 2020 Assessment & Plan (1) Substernal chest pain: 50 y/o F w/ ADD on occasional stimulant medication and w/o significant risk factors who presents w/ intermittent atypical chest pain x3 days. Stable. #Substernal chest pain midupper sternal, pleuritic, nonexertional, nonpositional, alleviated by nitro. No associated symptoms.other differentials considered: myocarditis, PE, costochondritis, GERD ecg w/ new LBBB, negative for modified and classic Sgarbossa criteria. heart score 1. AGNIESZKA score 1. -neg trop x2. trend -Cardiology consulted for new LBBB following recommendations - for cath today -Lipid profile: Total cholesterol 165, LDL 79, HDL 76. #Situational anxiety Patient having significant anxiety regarding her current medical condition and scheduled procedure -Given 0.5 mg of Ativan IV prior to procedure will reassess postop #Elevated blood pressure reading no hx of HTN elevated BPs this admission, 170s/100 at peak chart review shows normotensive 108/68 on 04/26/20. Suspect secondary to anxiety regarding medical condition and schedule procedure. -Monitor blood pressure #ADD per Powerchart PCP chart review, prescibed Focalin XR 5 mg (desmethylphenidate) qam, per patient, takes only a few times a month, as needed. -Holding Focalin #Subclinical hyperthyroidism labwork this admission: TSH <0.005. fT4 1.63. 09/16/20 iodine elevated at 376. the abnormality was noted on 09/16/20 PCP labs as well, but new compared to 03/19/20 TSH 0.87, fT4 1.0. had normal nuclear thyroid scan on 06/10/20 for elevated thyroglobulin of 12.4. patient had been taking over the counter iodine supplement x several months - f/u as outpatient #RA - chronic, not on medications #Moderate LIZZY - not on cpap, has had sleep studies - outpatient f/u #Depression - continue home Wellbutrin FENa: N.p.o. for procedure then heart healthy diet Code Status: Full code DVT PPX: Heparin PT/OT: Not indicated Dispo: PCU Rg Kerr MD PGY 2, FCM This chart was completed utilizing [employer] voice recognition software. Grammatical errors, random word insertions, pronoun errors, and in complete sentences are an occasional consequence of the system. Any questions or concerns about the content, text, or information contained within the body of this dictation should be addressed directly to the physician for clarification. (2) Elevated blood pressure reading: (3) ADD (attention deficit disorder): (4) Subclinical hyperthyroidism: (5) Rheumatoid arthritis: (6) Moderate obstructive sleep apnea: (7) Depression: Admission and Anticipated Discharge Date Admission Date: September 19, 2020 Subjective Patient lying in bed this morning demonstrating significant anxiety regarding upcoming procedure. Patient reports tolerating her diet, voiding, stooling, denying chest pressure or chest pain this morning. Patient relate a history similar to that described in the history and physical. Patient is scheduled for cath today with Dr. Escalera. Acute concerns relate to procedure and discharge planning all questions answered. Physical Exam Physical Exam: General: No acute distress HEENT: Normocephalic atraumatic Neck: No significant lymphadenopathy, trachea midline, normal to visual inspection Cardiac: Regular rate and rhythm, normal S1, normal S2, I did not appreciated any significant murmurs rubs or gallops, I did not appreciate any significant pedal edema, No calf tenderness, capillary refill is less than 3 seconds Respiratory: Clear to auscultation bilaterally with symmetrical chest rise, I did not appreciate any significant wheezes, rales, rhonchi, no increased work of breathing GI: Normal bowel sounds, soft, nontender in all 4 quadrants, nondistended MSK: No sensory or motor changes, moves all extremities without issue, extremities are warm and well-perfused Skin: [place], clean, dry, intact. Neuro: Alert and oriented x4 Psych: Calm, cooperative, logical thought process Results & Data Results & Data ([facility]) Vital Signs (Past 12 Hours) Vital Signs Temp Pulse Pulse Resp BP BP Pulse Ox 09/20/20 07:56 36.6 C 78 21 177/99 H 99 09/20/20 07:18 70 09/20/20 04:04 36.7 C 74 16 150/82 H 96 09/20/20 00:15 156/89 H 09/19/20 23:30 75 09/19/20 22:36 36.8 C 77 16 184/99 H 97 09/19/20 22:13 79 157/90 H 98 09/19/20 22:00 88 21 184/122 H 96 06/10/21 21:30 79 14 169/106 H 96 09/19/20 21:00 73 26 H 153/108 H 09/19/20 20:30 70 22 170/108 H 97 Laboratory Results 09/20/20 09/20/20 09/20/20 Range/Units 05:58 05:58 05:58 WBC (4.8-10.8) K/uL RBC (4.2-5.4) M/uL Hgb (12.0-16.0) g/dL Hct (37-47) % MCV (80-100) fL MCH (25-34) pg MCHC (32-36) g/dL RDW Std Deviation (36.4-46.3) fL RDW Coeff of Wendy (11.5-14.5) % Plt Count (130-400) K/uL MPV (7.4-10.4) fL Immature Gran % (Auto) % Neut % (Auto) % Lymph % (Auto) % [place] % (Auto) % Eos % (Auto) % Baso % (Auto) % Neut # (Auto) (1.4-6.5) K/uL Lymph # (Auto) (1.2-3.4) K/uL [place] # (Auto) (0.11-0.59) K/uL Eos # (Auto) (0-0.5) K/uL Baso # (Auto) (0-0.2) K/uL Immature Gran # (Auto) (0.00-0.02) K/uL PT (9.0-12.0) Seconds INR (0.9-1.1) APTT (21.0-31.0) Seconds PTT Ratio D-Dimer (0-500) ug/L FEU Sodium (136-145) mmol/L Potassium (3.5-5.1) mmol/L Chloride (98-107) mmol/L Carbon Dioxide (21-32) mmol/L Anion Gap (3-11) BUN (7-18) mg/dl Creatinine (0.6-1.2) mg/dl Est Cr Clr Drug Dosing ml/min Est GFR ( Amer) ml/min Est GFR (Non-Af Amer) ml/min BUN/Creatinine Ratio (10-20) Glucose (70-99) mg/dl Estimat Average Glucose 111 mg/dl Hemoglobin A1c 5.5 (4.5-5.6) % Calcium (8.5-10.1) mg/dl Magnesium (1.8-2.4) mg/dl Total Bilirubin (0.2-1) mg/dl AST (15-37) U/L ALT (12-78) U/L Alkaline Phosphatase (45-117) U/L Troponin I < 0.015 (0-0.045) ng/ml Total Protein (6.4-8.2) gm/dl Albumin (3.4-5.0) gm/dl Globulin (2.5-4.0) gm/dl Albumin/Globulin Ratio (0.9-2) Triglycerides 49 (0-150) mg/dl Cholesterol 165 (0-200) mg/dl LDL Cholesterol, Calc 79 mg/dl VLDL Cholesterol, Calc 10 mg/dl HDL Cholesterol 76 mg/dl Cholesterol/HDL Ratio 2 Lipase (73-393) U/L TSH (0.300-4.500) uIu/ml Free T4 (0.8-1.6) ng/dl COVID-19 Eval Order SARS-CoV-2 (PCR) (Negative) 09/20/20 09/20/20 09/20/20 Range/Units 01:57 01:57 01:57 WBC 4.76 L (4.8-10.8) K/uL RBC 4.21 (4.2-5.4) M/uL Hgb 11.4 L (12.0-16.0) g/dL Hct 34.7 L (37-47) % MCV 82.4 (80-100) fL MCH 27.1 (25-34) pg MCHC 32.9 (32-36) g/dL RDW Std Deviation 38.4 (36.4-46.3) fL RDW Coeff of Wendy 12.7 (11.5-14.5) % Plt Count 254 (130-400) K/uL MPV 9.6 (7.4-10.4) fL Immature Gran % (Auto) 0.0 % Neut % (Auto) 45.2 % Lymph % (Auto) 42.2 % [place] % (Auto) 9.2 % Eos % (Auto) 3.2 % Baso % (Auto) 0.2 % Neut # (Auto) 2.15 (1.4-6.5) K/uL Lymph # (Auto) 2.01 (1.2-3.4) K/uL [place] # (Auto) 0.44 (0.11-0.59) K/uL Eos # (Auto) 0.15 (0-0.5) K/uL Baso # (Auto) 0.01 (0-0.2) K/uL Immature Gran # (Auto) 0.00 (0.00-0.02) K/uL PT (9.0-12.0) Seconds INR (0.9-1.1) APTT 55.0 H* (21.0-31.0) Seconds PTT Ratio 2.1 D-Dimer (0-500) ug/L FEU Sodium 144 (136-145) mmol/L Potassium 3.6 (3.5-5.1) mmol/L Chloride 112 H (98-107) mmol/L Carbon Dioxide 29 (21-32) mmol/L Anion Gap 3.0 (3-11) BUN 16 (7-18) mg/dl Creatinine 0.86 (0.6-1.2) mg/dl Est Cr Clr Drug Dosing 70.4 ml/min Est GFR ( Amer) 91.3 ml/min Est GFR (Non-Af Amer) 78.8 ml/min BUN/Creatinine Ratio 18.3 (10-20) Glucose 99 (70-99) mg/dl Estimat Average Glucose mg/dl Hemoglobin A1c (4.5-5.6) % Calcium 8.7 (8.5-10.1) mg/dl Magnesium 2.2 (1.8-2.4) mg/dl Total Bilirubin (0.2-1) mg/dl AST (15-37) U/L ALT (12-78) U/L Alkaline Phosphatase (45-117) U/L Troponin I < 0.015 (0-0.045) ng/ml Total Protein (6.4-8.2) gm/dl Albumin (3.4-5.0) gm/dl Globulin (2.5-4.0) gm/dl Albumin/Globulin Ratio (0.9-2) Triglycerides (0-150) mg/dl Cholesterol (0-200) mg/dl LDL Cholesterol, Calc mg/dl VLDL Cholesterol, Calc mg/dl HDL Cholesterol mg/dl Cholesterol/HDL Ratio Lipase (73-393) U/L TSH (0.300-4.500) uIu/ml Free T4 (0.8-1.6) ng/dl COVID-19 Eval Order SARS-CoV-2 (PCR) (Negative) 09/19/20 09/19/20 09/19/20 Range/Units 18:27 18:27 18:27 WBC 6.37 (4.8-10.8) K/uL RBC 4.66 (4.2-5.4) M/uL Hgb 12.6 (12.0-16.0) g/dL Hct 38.2 (37-47) % MCV 82.0 (80-100) fL MCH 27.0 (25-34) pg MCHC 33.0 (32-36) g/dL RDW Std Deviation 38.0 (36.4-46.3) fL RDW Coeff of Wendy 12.7 (11.5-14.5) % Plt Count 286 (130-400) K/uL MPV 9.9 (7.4-10.4) fL Immature Gran % (Auto) 0.2 % Neut % (Auto) 45.6 % Lymph % (Auto) 41.1 % [place] % (Auto) 10.5 % Eos % (Auto) 2.4 % Baso % (Auto) 0.2 % Neut # (Auto) 2.91 (1.4-6.5) K/uL Lymph # (Auto) 2.62 (1.2-3.4) K/uL [place] # (Auto) 0.67 H (0.11-0.59) K/uL Eos # (Auto) 0.15 (0-0.5) K/uL Baso # (Auto) 0.01 (0-0.2) K/uL Immature Gran # (Auto) 0.01 (0.00-0.02) K/uL PT 9.8 (9.0-12.0) Seconds INR 1.0 (0.9-1.1) APTT 25.8 (21.0-31.0) Seconds PTT Ratio 1.0 D-Dimer 440 (0-500) ug/L FEU Sodium 141 (136-145) mmol/L Potassium 3.7 (3.5-5.1) mmol/L Chloride 108 H (98-107) mmol/L Carbon Dioxide 26 (21-32) mmol/L Anion Gap 7.0 (3-11) BUN 16 (7-18) mg/dl Creatinine 0.86 (0.6-1.2) mg/dl Est Cr Clr Drug Dosing 70.4 ml/min Est GFR ( Amer) 91.3 ml/min Est GFR (Non-Af Amer) 78.8 ml/min BUN/Creatinine Ratio 18.4 (10-20) Glucose 92 (70-99) mg/dl Estimat Average Glucose mg/dl Hemoglobin A1c (4.5-5.6) % Calcium 9.0 (8.5-10.1) mg/dl Magnesium (1.8-2.4) mg/dl Total Bilirubin 0.2 (0.2-1) mg/dl AST 28 (15-37) U/L ALT 33 (12-78) U/L Alkaline Phosphatase 95 (45-117) U/L Troponin I < 0.015 (0-0.045) ng/ml Total Protein 8.4 H (6.4-8.2) gm/dl Albumin 3.9 (3.4-5.0) gm/dl Globulin 4.5 H (2.5-4.0) gm/dl Albumin/Globulin Ratio 0.9 (0.9-2) Triglycerides (0-150) mg/dl Cholesterol (0-200) mg/dl LDL Cholesterol, Calc mg/dl VLDL Cholesterol, Calc mg/dl HDL Cholesterol mg/dl Cholesterol/HDL Ratio Lipase 107 (73-393) U/L TSH < 0.005 L (0.300-4.500) uIu/ml Free T4 1.63 H (0.8-1.6) ng/dl COVID-19 Eval Order SARS-CoV-2 (PCR) (Negative) 09/19/20 09/19/20 Range/Units 18:00 18:00 WBC (4.8-10.8) K/uL RBC (4.2-5.4) M/uL Hgb (12.0-16.0) g/dL Hct (37-47) % MCV (80-100) fL MCH (25-34) pg MCHC (32-36) g/dL RDW Std Deviation (36.4-46.3) fL RDW Coeff of Wendy (11.5-14.5) % Plt Count (130-400) K/uL MPV (7.4-10.4) fL Immature Gran % (Auto) % Neut % (Auto) % Lymph % (Auto) % [place] % (Auto) % Eos % (Auto) % Baso % (Auto) % Neut # (Auto) (1.4-6.5) K/uL Lymph # (Auto) (1.2-3.4) K/uL [place] # (Auto) (0.11-0.59) K/uL Eos # (Auto) (0-0.5) K/uL Baso # (Auto) (0-0.2) K/uL Immature Gran # (Auto) (0.00-0.02) K/uL PT (9.0-12.0) Seconds INR (0.9-1.1) APTT (21.0-31.0) Seconds PTT Ratio D-Dimer (0-500) ug/L FEU Sodium (136-145) mmol/L Potassium (3.5-5.1) mmol/L Chloride (98-107) mmol/L Carbon Dioxide (21-32) mmol/L Anion Gap (3-11) BUN (7-18) mg/dl Creatinine (0.6-1.2) mg/dl Est Cr Clr Drug Dosing ml/min Est GFR ( Amer) ml/min Est GFR (Non-Af Amer) ml/min BUN/Creatinine Ratio (10-20) Glucose (70-99) mg/dl Estimat Average Glucose mg/dl Hemoglobin A1c (4.5-5.6) % Calcium (8.5-10.1) mg/dl Magnesium (1.8-2.4) mg/dl Total Bilirubin (0.2-1) mg/dl AST (15-37) U/L ALT (12-78) U/L Alkaline Phosphatase (45-117) U/L Troponin I (0-0.045) ng/ml Total Protein (6.4-8.2) gm/dl Albumin (3.4-5.0) gm/dl Globulin (2.5-4.0) gm/dl Albumin/Globulin Ratio (0.9-2) Triglycerides (0-150) mg/dl Cholesterol (0-200) mg/dl LDL Cholesterol, Calc mg/dl VLDL Cholesterol, Calc mg/dl HDL Cholesterol mg/dl Cholesterol/HDL Ratio Lipase (73-393) U/L TSH (0.300-4.500) uIu/ml Free T4 (0.8-1.6) ng/dl COVID-19 Eval Order Covid19 at [facility] SARS-CoV-2 (PCR) NEGATIVE (Negative) Medications Administered Current Inpatient Medications Aspirin (Aspirin 81 Mg Ectab) 81 mg PO DAILY SHERRY Stop: 10/20/20 08:59 Bupropion HCl (Bupropion Xl 150 Mg Tabcr) 150 mg PO DAILY SHERRY Stop: 10/20/20 08:59 Heparin Sodium/Dextrose (Heparin Sodium/Dextrose) 25,000 units in 500 mls @ 14 mls/hr IV .Q24H SHERRY; Protocol Stop: 10/19/20 19:58 Last Titration: 09/20/20 06:52 Dose: 700 units/hr, 14 mls/hr Documented by: Lactated Ringer's (Lr) 1,000 mls @ 100 mls/hr IV .Q10H SHERRY Stop: 09/20/20 19:59 Last Admin: 09/20/20 10:38 Dose: 100 mls/hr Documented by: Labetalol HCl (Labetalol Hcl Iv 5 Mg/Ml 20ml) 10 mg IV Q4H PRN PRN Reason: >180 systolic Stop: 10/19/20 22:47 Morphine Sulfate (Morphine Sulfate 2 Mg/Ml Carp) 2 mg IV Q30M PRN PRN Reason: Chest Pain Stop: 10/03/20 22:47 Nitroglycerin (Nitroglycerin Sl 0.4 Mg/Tab Tab) 0.4 mg SL UD PRN PRN Reason: Chest Pain Stop: 10/19/20 18:11 Last Admin: 09/19/20 18:46 Dose: 0.4 mg Documented by:
[2020-09-20] MEDS ORDERED: ASPIRIN 81 MG ECTAB PO SCH (09:00)
[2020-09-20] MEDS ORDERED: buPROPion XL 150 MG TABCR PO SCH (09:00)
[2020-09-20] MEDS ORDERED: LORazepam 0.5 MG/1 ML VIAL IV STA (10:21)
--- NOTE | 2020-09-20 13:16 | XCELERA ---
[id number]
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
--- NOTE | 2020-09-20 16:20 | Discharge Summary ---
Date of Service September 20, 2020 Admission HPI Per Admitting Provider 50 y/o F w/ hx of ADD on stimulant, RA, subclinical hyperthyroidism who presents w/ intermittent midsternal pressure-like chest pain since 2 days ago. She was driving at the time of onset. The pain is nonexertional, nonpositional, does not radiate, and dose not have associated symptoms such as fever/chills, nausea/vomiting, headache, visual changes, palpitations, numbness/tingling, jaw pain, abd pain. It is pleuritic and noticed mainly only when taking in a deep breath, described as if "something was blocking her deep breathing." 6/10 severity 2 days ago, minimal yesterday, and 4/10 today, prompting her to see PCP who referred to ED after noting a new onset LBBB compared to 2013. Current pain, s/p nitro x2 and nitro paste is 0-1/10. Patient denies hx of DM, FHx of heart or thyroid disease, as well as recent overexertion or trauma. She is covid vaccinated. 1 pack year history 25 years ago. No history of previous chest pain. ED course: she is s/p nitro x1 at PCP office and another upon ED arrival. 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 ECG in ED w/ LBBB. Chief Complaint: chest pain Primary Care Provider: FELICE Charles Admission Exam Per Admitting Provider Vitals reviewed. Hypertensive. General: Grossly A&O. NAD. Cooperative. HEENT: Atraumatic, normocephalic. EOMI. PERRL. Neck supple. No lymphadenopathy. Pulm: CTAB. -wheezes, -rales, -rhonchi. Symmetrical chest rise. No respiratory distress. Cardiac: RRR, -mrg. Radial pulses and DP pulses 2+ bilaterally. Musculoskeletal: No reproducible upper chest wall tenderness. Abdominal: Nontender, nondistended, soft. Principal Diagnosis ACS rule out Discharge Exam General: No acute distress HEENT: Normocephalic atraumatic Neck: No significant lymphadenopathy, trachea midline, normal to visual inspection Cardiac: Regular rate and rhythm, normal S1, normal S2, I did not appreciated any significant murmurs rubs or gallops, I did not appreciate any significant pedal edema, No calf tenderness, capillary refill is less than 3 seconds Respiratory: Clear to auscultation bilaterally with symmetrical chest rise, I did not appreciate any significant wheezes, rales, rhonchi, no increased work of breathing GI: Normal bowel sounds, soft, nontender in all 4 quadrants, nondistended MSK: No sensory or motor changes, moves all extremities without issue, extremities are warm and well-perfused Skin: Fraser, clean, dry, intact. Neuro: Alert and oriented x4 Psych: Calm, cooperative, logical thought process Discharge Data Allergies Allergy/AdvReac Type Severity Reaction Status Date / Time No Known Drug Allergies Allergy Unknown Verified 09/19/20 19:53 Consultations 09/19/20 19:44 ED Decision to Admit Stat 09/19/20 22:31 Consult Cardiology Routine Hospital Course (1) Substernal chest pain: 50 y/o F w/ ADD on occasional stimulant medication and w/o significant risk factors who presents w/ intermittent atypical chest pain x3 days. Stable. #Substernal chest pain midupper sternal, pleuritic, nonexertional, nonpositional, alleviated by nitro. No associated symptoms.other differentials considered: myocarditis, PE, costochondritis, GERD ecg w/ new LBBB, negative for modified and classic Sgarbossa criteria. heart score 1. AGNIESZKA score 1. Troponins were obtained and remain negative. Cardiology was consulted for new left bundle branch block they believe her atypical chest pain is pleuritic in nature recommending a myocardial perfusion study as an outpatient. Follow-up with outpatient provider for hypertension as well. Echo today demonstrated normal LV systolic function, septal motion abnormality consistent with bundle branch block. Lipid profile obtained in the hospital demonstrated total cholesterol 165, LDL of 79, HDL 76. Patient was asymptomatic on the day of discharge. And was counseled on warning signs and symptoms including chest pressure chest pain shortness of breath syncopal episodes, or other distressing symptoms to her. Should she experience any she is advised to return. #Elevated blood pressure reading no hx of HTN elevated BPs this admission, 170s/100 at peak chart review shows normotensive 108/68 on 04/26/20. Suspect secondary to anxiety regarding medical condition and schedule procedure. Follow-up with outpatient provider to discuss hypertension control #ADD per Powerchart PCP chart review, prescibed Focalin XR 5 mg (desmethylphenidate) qam, per patient, takes only a few times a month, as needed. #Subclinical hyperthyroidism labwork this admission: TSH <0.005. fT4 1.63. 09/16/20 iodine elevated at 376. the abnormality was noted on 09/16/20 PCP labs as well, but new compared to 03/19/20 TSH 0.87, fT4 1.0. had normal nuclear thyroid scan on 06/10/20 for elevated thyroglobulin of 12.4. patient had been taking over the counter iodine supplement x several months. Recommend follow-up with outpatient primary care provider #RA - chronic, not on medications #Moderate LIZZY - not on cpap, has had sleep studies - outpatient f/u #Depression - continue home Wellbutrin Rg Kerr MD PGY 2, FCM This chart was completed utilizing PowerMag voice recognition software. Grammatical errors, random word insertions, pronoun errors, and in complete sentences are an occasional consequence of the system. Any questions or concerns about the content, text, or information contained within the body of this dictation should be addressed directly to the physician for clarification. Total Time Total Time Spent Total Time Spent (In Minutes): 45 Discharge Plan Discharge Items Patient Disposition: Home - Self-Care Reason For Visit: CHEST PAIN, NEW LBBB Discharge Diagnosis: Chest pain rule out, new onset left bundle branch block Activity: Resume your previous activity Non-emergency contact: Primary Care Provider and Dumpster Operator Call non-emergency contact if: you have any medication questions, your pain is not controlled and your temperature is above 101 Follow-up/Referrals: Charis Navarro CRNP [Primary Care Provider] - Diet: Heart Healthy Addtl Attending Provider Instructions: Care instructions: You were admitted to [facility] for treatment of evaluation of a new left bundle branch block observed on your EKG. While hospitalized your evaluated by satin finisher who felt that your chest pain was musculoskeletal in nature. They are unclear as to what caused you to determine the new left bundle branch block. You have been evaluated with echocardiography, and your biochemical markers of a heart attack were monitored. All of these were reassuring that you are not currently having a heart attack. Given your low risk for ACS the satin finisher felt it was safe to discharge you with follow-up. They will assist in scheduling a nuclear medicine scan to evaluate your heart under stress. Should you experience any symptoms of chest pressure, chest pain, shortness of breath, or other distressing symptoms to you that you should return to the hospital for further evaluation. Additionally while hospitalized it was noticed that your blood pressure was elevated, we recommend that you discuss this with your primary care provider. Additionally it was noted that you had subclinical hyperthyroidism or elevated thyroid hormone. We recommend you discuss this with your primary care provider as well. A discharge summary will be sent to your primary care physician to ensure continuity of care. Please bring this discharge summary with you to your next office appointment so that your provider can review it at that time. Follow-up appointments: - Keep all your follow-up appointments as already scheduled. If you cannot make an appointment, notify your provider. - Please call to request a follow-up appointment with your primary care physician within one week of discharge. Please let us know if you are unable to obtain an appointment Medications: - Your medication list has been reviewed and reconciled upon discharge to ensure accuracy and continuity of care. - You are provided with a list of all your current medications at this time. Please review this list closely and make note of any changes. - Please take all of your medications exactly as prescribed. - Tell your primary care provider if you cannot afford your medications. - Call your primary care provider if you are having any side effects or any other problems. - Call your primary care provider before taking any over the counter medications or supplements, including herbals and vitamins, because some of these may interact with your current medications and/or make your symptoms worse. Symptoms: Please call your primary care provider for symptoms including, but not limited to: fevers (temperatures greater than 100.4), chills, intractable nausea or vomiting, diarrhea, rash, shortness of breath, bleeding, pain, or if you experience any worsening of the symptoms that brought you to the hospital. For EMERGENCY and VERY SERIOUS health-related issues, such as chest pain, shortness of breath, or sudden onset of the symptoms that brought you to the hospital, you may need to call 911 or go directly to the Emergency Room It has been our privilege to take care of you during your hospital stay. And Above All Else Feel Better! Best Wishes, Rg Kerr MD PGY2 Resident, Family & Community Medicine [facility] Residency at [facility] [place] [address], [address] : [address] [place] [id number] Pending Studies at Discharge: No Stand-Alone Forms: My [facility] C2FO, Smoking Cessation Medications and DC Order Prescriptions: Continued boric acid See Rx Instructions MS ShieldsCOMPLEX RF: 0 bupropion HCl 150 mg tablet extended release 24 hr 150 mg PO DAILY RF: 0 dexmethylphenidate 5 mg capsule,ER biphasic 50-50 5 mg PO QAM RF: 0 Discharge Orders: Discharge Order (Routine); Ordered 09/20/20 Ordered By: Rg Kerr Admission Data Admit Date/Time: 09/19/20 22:21 Attending Provider: Ritchie Arthur Admit Provider: Sage Quintero Primary Care Provider: Charis Navarro Other Providers: Richa Kerr Jeffrey G. Resident Activity Tracking Resident Involvement: Resident Care Provided Care Provided: Adult Hospital Medicine
--- NOTE | 2020-09-20 18:06 | Billing Data ---
Date of Service September 20, 2020 Coding Level of Care Code 63862 OBS Care - Discharge
--- NOTE | 2020-09-20 18:07 | Hospitalist Progress Note ---
Date of Service September 20, 2020 Assessment & Plan (1) Somatic dysfunction of rib cage region: OMT as noted/documented in supervising physician addendum to discharge summary Admission and Anticipated Discharge Date Admission Date: September 19, 2020 Results & Data Results & Data ([facility]) Vital Signs (Past 12 Hours) Vital Signs Temp Pulse Pulse Resp BP Pulse Ox 09/20/20 16:22 98.2 F 79 20 164/94 H 98 09/20/20 14:57 75 09/20/20 12:19 98.2 F 79 20 164/94 H 98 09/20/20 09:13 73 175/90 H 09/20/20 07:56 97.9 F 78 21 177/99 H 99 09/20/20 07:18 70 PG Care Time/CCT Total # of Minutes Spent Total Time Spent with Patient: Total time spent is greater than 50% in coordination of care (as documented) at patient's floor/unit and/or counseling patient: Coding Level of Care Code None Diagnoses Somatic dysfunction of rib cage region M99.08 CPT Codes Musculoskeletal - Musculoskeletal: [address] 1-2 Body regions ([id number])
--- NOTE | 2020-09-21 07:42 | Electrocardiogram Report ---
Test Reason : Blood Pressure : / mmHG Vent. Rate : 099 BPM Atrial Rate : 099 BPM P-R Int : 130 ms QRS Dur : 136 ms QT Int : 388 ms P-R-T Axes : 059 045 022 degrees QTc Int : 497 ms Normal sinus rhythm with sinus arrhythmia Possible Left atrial enlargement Left bundle branch block Abnormal ECG No previous ECGs available Confirmed by Marco Phipps ([id number]) on 09/21/2020 7:41:47 AM Referred By: REFERRED SELF Confirmed By:Marco Phipps
== END 2020-09-20 16:49 | disposition home or self-care (01) ==
LOC: 2S 18:09 → ED 18:09 → 2S 22:16 → SUATTDRO 22:21